=== PATIENT | female | born 1965 | race Caucasian/White ===

== ENCOUNTER 2016-08-27 07:04 | Day surgery (SDC) | payer BC, OTHER ==
[~2016-08-27 07:04] MED LIST: Metoclopramide 10 MG/2 ML SDV IV PRN; Sodium Chloride 0.9% 10 ML Syringe FLUSH PRN
[2016-08-27] MEDS ORDERED: Sodium Chloride 0.9% 1,000 ML IV SCH (09:15)
[2016-08-27] MEDS ORDERED: Atropine 0.4 MG/ML SDV ONE (11:25)
[2016-08-27] MEDS ORDERED: Propofol 200 MG/20 ML SDV ONE (11:25)
[2016-08-27] MEDS ORDERED: Midazolam 1 MG/ML 5 ML SDV ONE (11:25)
--- NOTE | 2016-08-27 12:51 | OR ---
DATE OF OPERATION: 08/27/2016 PREOPERATIVE DIAGNOSIS: Screening colonoscopy. POSTOPERATIVE DIAGNOSIS: Normal colonoscopy. OPERATION: Screening colonoscopy. COMPLICATIONS: None. DRAINS: None. SPECIMENS: None. ESTIMATED BLOOD LOSS: Zero. ANESTHESIA: General propofol anesthesia. INDICATION: Ms. Whitman is a 50-year-old female here for her primary screening colonoscopy. She is considered high risk due to a first-degree relative with colon cancer. The above- mentioned procedure was explained. The risks, benefits, and complications were explained. The patient understood and agreed and is brought to the operating room. DESCRIPTION OF PROCEDURE: The patient was brought to the operating room and placed in left lateral decubitus position on the operating room table. Satisfactory general propofol anesthesia was administered. We began by performing a rectal examination, which revealed some perianal skin tags suggestive of previous external hemorrhoids. I then placed an endoscope by finger introduction into the rectum and subsequently advanced to the level of the cecum. The cecum was identified by the appendiceal orifice including the cecal strap and ileocecal valve. Careful evaluation of the mucosa was performed on withdrawal. There were no diverticula. No telangiectasias. No polyps or neoplastic growths. Next, a retroflexion was performed in the rectum, which was within normal limits. The colon was decompressed and the endoscope was withdrawn. The patient tolerated the procedure well. There were no complications. Instrument count was correct. The patient was awoken in the OR and taken to the PACU for recovery. MAUREEN /[id number]
[2016-08-27 14:12] VITALS: BP 136/65
== END 2016-08-27 13:30 | disposition home or self-care (01) ==
LOC: LB.SDS 07:04
PROVIDERS: ATTEND Surgery
PROC: 0DJD8ZZ Inspection of Lower Intestinal Tract, Via Natural or Artificial Opening Endoscopic (ICD-10-PCS; principal; 2016-08-27)
DX: Z12.11 Encounter for screening for malignant neoplasm of colon (principal); Z80.0 Family history of malignant neoplasm of digestive organs
CPT/HCPCS: 45378; J0461; J2250; J2704; J7040

== ENCOUNTER 2023-09-15 14:35 | Emergency (ER) | payer MEDICAID ==
[2023-09-15 17:12] VITALS: BP 152/75; PULSE 56
== END 2023-09-15 16:50 | disposition home or self-care (01) ==
LOC: LB.ED 14:35
DX: S60.211A Contusion of right wrist, initial encounter (principal); Z86.19 Personal history of other infectious and parasitic diseases; W00.0XXA Fall on same level due to ice and snow, initial encounter
CPT/HCPCS: 29125; 73110-RT; 99283; 99283-25

== ENCOUNTER 2024-11-26 14:42 | Emergency (ER) | payer MEDICAID ==
[2024-11-26 15:09] VITALS: BP 137/72; PULSE 68
== END 2024-11-26 15:18 | disposition home or self-care (01) ==
LOC: LB.ED 14:42
DX: J30.2 Other seasonal allergic rhinitis (principal)
CPT/HCPCS: 99283